=== PATIENT | female | born 1930 | race Caucasian/White ===

== ENCOUNTER 2017-02-06 12:33 | Inpatient (IN) | payer BC ==
[~2017-02-06] VITALS: Ht 167.6 cm; Wt 92.0 kg
[~2017-02-06 12:33] MED LIST: ASPI81CH43 PO; BENZ0.5T14 PO; CARV3.1240 PO; CIPR-217 PO; CLOR7.5T3 PO; FURO40TA4 PO; PHEN100C70 PO; RAMI10CA38 PO; SIMV-8 PO
[2017-02-06 13:27] LABS: Basophils # (auto) 0.1 uL; Basophils % (auto) 0.4 % (0.0-2.0); Eosinophils # (auto) 0.6 uL; Eosinophils % (auto) 3.9 % (0.0-7.0); Hematocrit 38.7 % (36.0-46.0); Lymphocytes # (auto) 2.1 uL; Lymphocytes % (auto) 13.7 % (10.0-50.0); Mean Corpuscular Hemoglobin 31.5 pg (28.0-32.0); Mean Corpuscular Hgb Conc. 33.5 g/dL (32.0-36.0); Mean Platelet Volume 8.5 fL (7.4-10.4); Monocytes # (auto) 0.8 uL; Monocytes % (auto) 5.3 % (0.0-12.0); Neutrophils % (auto) 76.7 % (37.0-80.0); Platelet Count (auto) 287 10^3/uL (140-450); White Blood Cell 15.7 10^3/uL (4.4-10.8)
[2017-02-06 13:41] LABS: INR 1.05 (0.9-1.15); Partial Thromboplastin Time 29.2 sec (22.64-33.71); Prothrombin Time 10.8 sec (9.37-12.3)
[2017-02-06 13:58] LABS: Albumin 2.6 g/dL (3.4-5.0); BUN/Creatinine Ratio 21.1; Bilirubin, Total 0.3 mg/dL (0.2-1.0); Calcium 8.8 mg/dL (8.5-10.1); Magnesium 2.2 mg/dL (1.6-2.6); Potassium 3.4 mmol/L (3.5-5.1)
[2017-02-06 16:45] LABS: Urine Bilirubin Negative (Negative); Urine Color Yellow (Yellow); Urine Glucose Normal (Normal); Urine Ketone Negative (Negative); Urine RBC <1 /hpf (0 - 4); Urine Squamous Epithelial Cell FEW /hpf (<5); Urine Urobilinogen Normal (Negative); Urine WBC Clumps PRESENT /hpf (None Seen); Urine pH 5.5 (5.0-8.0)
[2017-02-06 17:03] LABS: Urine Blood 1+ /uL (Negative); Urine Nitrite POSITIVE (Negative)
[2017-02-06] MEDS ORDERED: cefTRIAXone 1GM/50ML D5W 50 ML IV ONE ×2 (17:30→18:15)
[2017-02-06] MEDS ORDERED: LORazepam 0.5 MG TAB PO PRN (18:15)
[2017-02-06] MEDS ORDERED: TEMAZEPAM 15 MG CAP PO PRN (18:15)
[2017-02-06] MEDS ORDERED: ACETAMINOPHEN 500 MG TAB PO PRN (18:15)
[2017-02-06] MEDS ORDERED: MORPHINE SULF INJ 2 MG/ML SYRINGE 1ML IV PRN (18:15)
[2017-02-06] MEDS ORDERED: PROMETHAZINE HCL 25 MG/ML 1ML IV PRN (18:15)
[2017-02-06] MEDS ORDERED: PHENYTOIN SODIUM 100 MG CAP PO SCH (18:15)
[2017-02-06] MEDS ORDERED: HYDROcodone-ACET 5/325MG TAB PO PRN (18:15)
[2017-02-06] MEDS: SODIUM CHLORIDE 0.9% 1,000 ML IV SCH (19:21)
[2017-02-06] MEDS ORDERED: ASPirin 81 mg TAB PO ONE (19:30)
[2017-02-06] MEDS ORDERED: BENZTROPINE MESY 0.5 MG TAB PO ONE (19:30)
[2017-02-06 19:45] VITALS: BP 117/67
[2017-02-06] MEDS: ENOXAPARIN SOD 40 MG/0.4 ML SYRINGE SC SCH (20:44)
[2017-02-06] MEDS: PRAVASTATIN SODIUM 20 MG TAB PO SCH (21:37)
[2017-02-06] MEDS: CARVEDILOL 3.125 MG TAB PO SCH (21:37)
[2017-02-06] MEDS: FAMOTIDINE 20 MG TAB PO SCH (21:37)
[2017-02-06 21:42] VITALS: BP 117/67
[2017-02-07] MEDS: SODIUM CHLORIDE 0.9% 1,000 ML IV SCH ×2 (04:06→16:25)
[2017-02-07 05:00] VITALS: BP 127/65
[2017-02-07 06:40] LABS: Basophils # (auto) 0.1 uL; Basophils % (auto) 0.8 % (0.0-2.0); Eosinophils # (auto) 0.6 uL; Hematocrit 36.1 % (36.0-46.0); Hemoglobin 11.9 g/dL (12.2-16.2); Lymphocytes # (auto) 1.7 uL; Lymphocytes % (auto) 16.2 % (10.0-50.0); Mean Corpuscular Hemoglobin 31.3 pg (28.0-32.0); Mean Corpuscular Volume 94.9 fL (80.0-100.0); Mean Platelet Volume 9.8 fL (7.4-10.4); Monocytes # (auto) 0.8 uL; Monocytes % (auto) 7.2 % (0.0-12.0); Neutrophils # (auto) 7.5 uL; Neutrophils % (auto) 69.8 % (37.0-80.0); Platelet Count (auto) 228 10^3/uL (140-450); Red Cell Distribution Width 14.2 % (11.6-16.0); White Blood Cell 10.7 10^3/uL (4.4-10.8)
[2017-02-07] MEDS: cefTRIAXone 1GM/50ML D5W 50 ML IV SCH (08:29)
[2017-02-07 09:00] VITALS: BP 108/53
[2017-02-07] MEDS: BENZTROPINE MESY 0.5 MG TAB PO SCH (09:58)
[2017-02-07] MEDS: ASPirin 81 mg TAB PO SCH (09:58)
[2017-02-07] MEDS: RAMIPRIL 10 MG CAP PO SCH (09:59)
[2017-02-07] MEDS: FAMOTIDINE 20 MG TAB PO SCH (09:59)
[2017-02-07] MEDS: ENOXAPARIN SOD 40 MG/0.4 ML SYRINGE SC SCH (10:00)
[2017-02-07] MEDS: CLORAZEPATE DIPOTASSIUM 7.5 MG PO SCH (10:00)
[2017-02-07] MEDS: CARVEDILOL 3.125 MG TAB PO SCH ×2 (10:01→21:46)
[2017-02-07 12:28] VITALS: BP 154/91
[2017-02-07 16:31] VITALS: BP 90/51
[2017-02-07 21:23] VITALS: BP 115/81
[2017-02-07] MEDS: PHENYTOIN SODIUM 100 MG CAP PO SCH (21:46)
[2017-02-07] MEDS: PRAVASTATIN SODIUM 20 MG TAB PO SCH (21:46)
[2017-02-08 04:51] VITALS: BP 130/66
[2017-02-08 06:11] LABS: Basophils # (auto) 0.1 uL; Basophils % (auto) 0.8 % (0.0-2.0); DEFINITIVE VIEW TRANSMISSION; Eosinophils # (auto) 0.9 uL; Eosinophils % (auto) 9.5 % (0.0-7.0); Hematocrit 32.8 % (36.0-46.0); Hemoglobin 10.9 g/dL (12.2-16.2); Lymphocytes % (auto) 20.7 % (10.0-50.0); Mean Corpuscular Hgb Conc. 33.1 g/dL (32.0-36.0); Mean Corpuscular Volume 93.6 fL (80.0-100.0); Mean Platelet Volume 9.3 fL (7.4-10.4); Monocytes # (auto) 0.9 uL; Monocytes % (auto) 9.8 % (0.0-12.0); Neutrophils # (auto) 5.7 uL; Neutrophils % (auto) 59.2 % (37.0-80.0); Platelet Count (auto) 213 10^3/uL (140-450); Red Cell Distribution Width 14.4 % (11.6-16.0); White Blood Cell 9.6 10^3/uL (4.4-10.8)
[2017-02-08] MEDS: SODIUM CHLORIDE 0.9% 1,000 ML IV SCH (06:11)
[2017-02-08 06:39] LABS: BUN/Creatinine Ratio 29.2; Calcium 8.1 mg/dL (8.5-10.1); Magnesium 2.3 mg/dL (1.6-2.6); Potassium 3.5 mmol/L (3.5-5.1)
[2017-02-08 08:00] VITALS: BP_SYST 130; BP_SYST 143; BP_DIAS 101; BP_DIAS 71
[2017-02-08] MEDS: cefTRIAXone 1GM/50ML D5W 50 ML IV SCH (09:30)
[2017-02-08] MEDS: CLORAZEPATE DIPOTASSIUM 7.5 MG PO SCH (10:00)
[2017-02-08] MEDS ORDERED: FAMOTIDINE 20 MG TAB PO SCH (10:00)
[2017-02-08] MEDS: RAMIPRIL 10 MG CAP PO SCH (10:30)
[2017-02-08] MEDS: PHENYTOIN SODIUM 100 MG CAP PO SCH (10:30)
[2017-02-08] MEDS: ASPirin 81 mg TAB PO SCH (10:30)
[2017-02-08] MEDS: ENOXAPARIN SOD 40 MG/0.4 ML SYRINGE SC SCH (10:31)
[2017-02-08] MEDS: CARVEDILOL 3.125 MG TAB PO SCH (10:31)
[2017-02-08] MEDS: BENZTROPINE MESY 0.5 MG TAB PO SCH (10:31)
[2017-02-08 12:30] VITALS: BP 105/58
[2017-02-08 14:52] VITALS: BP 105/58
[2017-02-08 17:00] VITALS: BP 100/70
== END 2017-02-08 18:10 | disposition home health service (06) | DRG 872 ==
LOC: ER 12:33 → EDBD 12:33 → OVERFLOW 12:34 → EAST 19:30
PROVIDERS: ADMIT Internal Medicine; ATTEND Internal Medicine
DX: A41.9 Sepsis, unspecified organism (principal); N39.0 Urinary tract infection, site not specified; G45.9 Transient cerebral ischemic attack, unspecified; I42.9 Cardiomyopathy, unspecified; I25.10 Atherosclerotic heart disease of native coronary artery without angina pectoris; I50.9 Heart failure, unspecified; L89.152 Pressure ulcer of sacral region, stage 2; R33.9 Retention of urine, unspecified; E78.5 Hyperlipidemia, unspecified; I11.0 Hypertensive heart disease with heart failure; E87.6 Hypokalemia; N13.9 Obstructive and reflux uropathy, unspecified; Z86.73 Personal history of transient ischemic attack (TIA), and cerebral infarction without residual deficits; Z74.01 Bed confinement status; I25.2 Old myocardial infarction; Z95.0 Presence of cardiac pacemaker; Z95.810 Presence of automatic (implantable) cardiac defibrillator
CPT/HCPCS: 36415; 51702; 71010; 80048; 80053; 80061; 81001; 82962; 83036; 83735; 84443; 85025; 85610; 85730; 87086; 93005; 96365; J0696